=== PATIENT | female | born 1940 | race Native Hawaiian/Other Pacific Islander ===

== ENCOUNTER 2016-11-27 09:59 | Outpatient (CLI) | payer OTHER ==
[~2016-11-27 09:59] MED LIST: AMLO5TAB PO; AMOX500C85 PO; APIDRA SC; ASA LOW STR81 MG PO; CETRAXAL0.2 % OT; CIPRO500 MG PO; DOXA2TAB PO; FERROUS SULF325 M1 OR; FEXOFENADINE H180 MG PO; FLUC100T3 PO; FLUTMIS6 INH; GLIP10TA55 PO; HYDR25TA60 PO; INSUINJ20 SC; LACTSYP31 PO; LEVEMIR SC; METFTAB PO; METO50TA63 PO; NAPROSYN500 MG PO; NITR100C56 PO; OSTEO BI-FLX1 TAB OR; PRIMAXIN IV; RANI150T78 PO; SIMV40TA57; STOOL SOFTENER1 TA2 OR; TRAM50TA PO; TRIM800T12 PO; UNITH DIRECT50 MCG OR; Z-PAK PO
== END 2016-11-27 19:12 | disposition home or self-care (01) ==
LOC: MAMMO 09:59
DX: N64.59 Other signs and symptoms in breast (principal); Z12.31 Encounter for screening mammogram for malignant neoplasm of breast
CPT/HCPCS: G0202-TC

== ENCOUNTER 2018-03-05 09:42 | Outpatient (CLI) | payer OTHER | END 2018-03-05 23:12 | disposition home or self-care (01) | LOC: MAMMO 09:42 → RESP 09:42 → MAMMO 23:12 | DX: Z12.31 Encounter for screening mammogram for malignant neoplasm of breast (principal); R06.02 Shortness of breath ==

== ENCOUNTER 2021-12-04 12:15 | Outpatient (CLI) | payer OTHER | END 2021-12-04 18:59 | disposition home or self-care (01) | LOC: RAD 12:15 | PROVIDERS: ATTEND Internal Medicine | DX: M79.662 Pain in left lower leg (principal); R10.32 Left lower quadrant pain; R60.0 Localized edema ==

== ENCOUNTER 2022-05-03 13:10 | Outpatient (CLI) | payer OTHER | END 2022-05-03 19:06 | disposition home or self-care (01) | LOC: CT 13:10 | PROVIDERS: ATTEND Internal Medicine | DX: R51.9 Headache, unspecified (principal) | CPT/HCPCS: 36415; 82565; 84520 ==

== ENCOUNTER → 2022-07-03 | Outpatient (CLI) | payer OTHER | LOC: RAD 12:03 | PROVIDERS: ATTEND Internal Medicine | DX: M54.59 Other low back pain (principal); M25.551 Pain in right hip ==

== ENCOUNTER 2023-01-10 08:12 | Outpatient (CLI) | payer OTHER | END 2023-01-10 18:52 | disposition home or self-care (01) | LOC: US 08:12 | PROVIDERS: ATTEND Internal Medicine | DX: R00.2 Palpitations (principal); R06.09 Other forms of dyspnea; N18.9 Chronic kidney disease, unspecified; I73.9 Peripheral vascular disease, unspecified ==